=== PATIENT | female | born 1975 | race Caucasian/White ===

== ENCOUNTER 2021-07-13 17:16 | Outpatient (CLI) | payer BC, SELFPAY ==
--- NOTE | ~2021-07-13 | XR_ITS ---
EXAMINATION: XR chest 2V DATE: 07/13/2021 17:32 INDICATION: Cough and shortness of breath TECHNIQUE: Frontal and lateral views of the chest are obtained COMPARISON: None available FINDINGS: The lungs are free of acute opacities. There is no pleural effusion or pneumothorax. The ca rdiomediastinal silhouette is normal. There is mild thoracic spondylosis. IMPRESSION: 1. No acute cardiopulmonary abnormality. Reviewed, dictated and finalized at location B.
== END 2021-07-13 17:17 | disposition home or self-care (01) ==
LOC: ANHIMG 17:20
PROVIDERS: PCP Family Medicine; Visit Provider Nurse Practitioner Gerontology
DX: R05.9 Cough, unspecified (principal); M47.814 Spondylosis without myelopathy or radiculopathy, thoracic region
CPT/HCPCS: 71046

== ENCOUNTER → 2023-03-01 13:53 | Outpatient (CLI) | payer BC, SELFPAY ==
--- NOTE | ~2023-03-01 | US_ITS ---
EXAMINATION: US pelvic complete DATE: 03/01/2023 14:22 INDICATION: Right pelvic mass on CT TECHNIQUE: Multiple transabdominal and endovaginal sonographic images of the pelvis were obtained. COMPARISON: Outside hospital CT dated 02/28/2023 FINDINGS: The uterus is surgically absent. The left ovary is surgically absent. No left adnexal abnor mality is seen. The right ovary measures 7.0 x 4.3 x 5.7 cm. There is an apparent 3 cm solid mass of the right adnexa. There is a 3.5 x 2.1 cm mass with thickened internal septations of the right adnexa . There appears to be a 2.6 x 2.5 cm cystic mass with peripheral solid component of the right adnexa as well. There is normal vascular flow in the right ovary. There is no free fluid in the pelvis. IMPRESSION: 1. Cystic and solid mass versus masses of the right adnexa concerning for neoplasm. Surgical evaluati on is recommended. Reviewed, dictated and finalized at location B. OSURGICAL PHYSICIAN ASSISTANT IMPRESSION: 1. Cystic and solid mass versus masses of the right adnexa concerning for neopl asm. Surgical evaluation is recommended.
== END ==
PROVIDERS: PCP Family Medicine; Visit Provider Physician Assistant
DX: R19.03 Right lower quadrant abdominal swelling, mass and lump (principal)
CPT/HCPCS: 76856

== ENCOUNTER 2023-03-04 12:09 | Outpatient (CLI) | payer BC, SELFPAY ==
[2023-03-08 02:54] LABS: CA-125 12 U/mL (<35)
== END 2023-03-04 12:10 | disposition home or self-care (01) ==
PROVIDERS: PCP Family Medicine; Visit Provider Student in an Organized Health Care Education/Training Program
DX: N83.291 Other ovarian cyst, right side (principal)
CPT/HCPCS: 36415; 86304

== ENCOUNTER 2023-03-07 01:20 | Day surgery (SDC) | payer BC, SELFPAY ==
[2023-03-05 14:23] VITALS: BMI 26.6
--- NOTE | 2023-03-05 14:29 | PC.NURSE ---
Report to the Outpatient Waiting Room, entrance under the green pavilion located off [facility], at time 10:00 on date 03/07/23. Planned Procedure Time: 12:00. Time changes happen often and if your time is changed the preop area will call you the afternoon before. - You and your visitor will be asked to self-screen and do not enter if you have any COVID symptoms. - A mask is optional within the hospital at this time. Patients may have clear liquids (water, carbonated beverages, clear teas, apple juice) until 3 hours prior to surgery (9:00) with a maximum of 20 ounces. - No food from midnight until time of surgery Take the following medications with a SIP of water the morning of surgery: ANTIBIOTIC, PAIN PILL IF NEEDED DO NOT STOP ANY OF YOUR OTHER PRESCRIPTION MEDICATIONS PRIOR TO SURGERY ?EXCEPT THE FOLLOWING Medications to discontinue per physician: N/A Date to take last dose: N/A Please no make-up, nail mongolian, hairspray, perfume, deodorant, or body powder the day of surgery. No jewelry (including any body piercings) or valuables the day of surgery, leave them at home. Please take a shower or bath the night before, or the morning of, surgery with an antibacterial soap. Wear comfortable, loose fitting clothing. - Jewelry must be removed prior to entering the operating room. Rings and piercings that are not removed may be cut off. - The hospital will not accept responsibility for valuables. - Please leave all valuables, including medications, at home the day of surgery. If you are going home after surgery, a licensed short haul driver must drive you home. - NO public transportation without another adult if you receive anesthesia. - We recommend that an adult stay with you for 24 hours following discharge. - We also recommend that you do not drive, make important decision, drink alcoholic beverages, or take any drugs that were not prescribed by your health care provider for at least 24 hours after your discharge time. Follow any additional instructions given to you from your surgeon. If you or anyone in your household have experienced Covid symptoms in the past week, please notify your surgeon or the nurse liaison at the phone number below for possible testing. Telephone instructions given to PT - SUSAN HINTON and asked if any additional questions and then verbalized understanding. Patient advised to call surgeon office or pre surgery nurse liaison [phone] if any additional questions.
[2023-03-07] VITALS (9 sets, daily range): BP systolic 102–139; BP diastolic 61–82; PULSE 68–94; RESP 12–18; TEMP 36.3–36.4; O2SAT 94–100
--- NOTE | 2023-03-07 10:31 | PM.IMHP ---
H&P: HPI History of Present Illness Date/Time: 03/07/23 10:31 Chief Complaint: pelvic pain Ovarian mass Narrative: 47-year-old female who presents for laparoscopic right oophorectomy, possible laparotomy. Patient presented to the emergency room this past weekend after acute onset of pelvic pain. Patient had associated nausea and vomiting. Patient had imaging at [facility] emergency room. CT scan and pelvic ultrasound showed an enlarged 8 x 7 cm right adnexal mass. Mass showed multiple septations, solid components. There is no free fluid in the pelvis. Normal vascular flow was observed. Patient had CA 125 labs ordered. Results are still pending. Patient's pain was poorly controlled with p.o. narcotics. Review of Systems Review of Systems: All systems reviewed & are unremarkable except as noted in HPI and below Cardiovascular: Cardiovascular: Denies chest pain, Denies leg edema, Denies palpitations, Denies dyspnea and Denies dyspnea on exertion Respiratory: Respiratory: Denies cough, Denies dyspnea and Denies dyspnea on exertion Gastrointestinal: Gastrointestinal: Denies abdominal pain, Denies constipation, Denies diarrhea, Denies nausea and Denies vomiting Genitourinary: Genitourinary: Denies hematuria, Denies urinary frequency, Denies dysuria, Denies pelvic pain, Denies urinary incontinence and Denies vaginal discharge Neurologic: Reports system reviewed and no additional complaints, except as documented Psychiatric: Psychiatric: Reports no additional psychiatric complaints Endocrine: Endocrine: Denies palpitations [facility] Surgical History Surgical History (Updated 03/04/23 @ 10:48 by Carol Buckley CMA) H/O: hysterectomy History of cholecystectomy Social History Social History Social History: Single Years smoked: 25 Smoking status: Current every day smoker Tobacco type: cigarettes Second hand tobacco smoke exposure: Yes Alcohol intake: current Alcohol use details: 2/YEAR Substance use: never Substance use type: does not use Lack of Transportation: No Lack of Food: Never True Current Housing: I Have Housing Concerned About Future Housing: No Difficulty Paying Gas/Electric Bills: No Difficulty Paying for Meds: No Currently Unemployed: YES Education: High School Diploma/GED Difficulty w/ Childcare or Family Care: No Living arrangements: with family Occupation/Education: occupation Gender identity (if verbalized by the patient): Female Sexual Orientation (if Verbalized by the Patient): Straight or Heterosexual Spiritual care concerns: No Meds Home Medications and Allergies Home Medications Medication Instructions Recorded Confirmed Type ciprofloxacin HCl 500 mg tablet 500 mg PO Q12H #14 tabs 03/01/23 03/05/23 Rx ondansetron HCl 4 mg tablet 4 mg PO Q8H PRN Nausea And Vomiting 03/04/23 03/05/23 History oxycodone-acetaminophen 10 mg-325 1 tablet PO Q6H PRN pain #28 tabs 03/04/23 03/05/23 Rx mg tablet Allergies Allergy/AdvReac Type Severity Reaction Status Date / Time No Known Allergies Allergy Verified 03/05/23 14:22 Vital Signs Vital Signs - 24 hr 03/07/23 10:15 Temperature 97.4 F L Pulse Rate 80 Respiratory Rate 18 Blood Pressure 114/75 Pulse Oximetry 98 Oxygen Delivery Room Air Exam Const: General: no acute distress Eyes: EOM: EOMs intact bilaterally Neck: Neck: supple Thyroid: thyroid normal Chest: Breast/axilla inspection: normal inspection of the breasts Breast/axilla palpation: normal palpation of the breasts, normal palpation of the axillae and no axillary lymphadenopathy Resp: Effort & Inspection: normal respiratory effort Auscultation: clear to auscultation bilaterally Cardio: Rate: regular rate Rhythm: regular rhythm GI: Inspection: non-distended GI Palp: Yes Soft to palpation, Yes Tenderness to palpation present (GI) and Yes Guarding due to palpation
[2023-03-07] MEDS: LACTATED RINGERS 1,000 ML 30 ML IV CONT ×2 (10:40→13:06)
[2023-03-07] MEDS: ACETAMINOPHEN 500 MG TABLET 1000 MG PO (10:44)
[2023-03-07] MEDS: KETOROLAC 15 MG/ML VIAL (*BKC) IV PUSH (10:45)
[2023-03-07 10:59] LABS: Hematocrit 37.6 % (37.0-47.0); Hemoglobin 12.4 g/dL (12.0-15.0); Mean Corpuscular Hemoglobin 30.8 pg (26-34); Mean Corpuscular Volume 93.5 fl (80-100); Mean Platelet Volume 9.6 fl (7.4-10.4); Platelet Count Result 212 k/mm3 (150-375); Red Blood Count 4.02 M/mm3 (4.2-5.4); Red Cell Distribution Width 12.4 % (11.5-14.5); White Blood Count 5.5 K/mm3 (4.5-10.0)
--- NOTE | 2023-03-07 11:06 | WPDANESEPPF ---
Anes - Initial Pre Proc Eval Procedure: Operation Date: 03/07/23 12:00 Proposed Procedures p Laparoscopic Right Oophorectomy - Moreno Doherty MD Date/Time: 03/07/23 11:06 Surgeon: Moreno Doherty MD Pre Op Diagnosis: right ovarian mass Patient Data Age: 47 Gender: F Height: 1.75 m Weight: 84.1 kg Last Vital Signs Temp 36.3 C L 03/07/23 10:15 Pulse 80 03/07/23 10:15 Resp 18 03/07/23 10:15 BP 114/75 03/07/23 10:15 Pulse Ox 98 03/07/23 10:15 O2 Del Method Room Air 03/07/23 10:15 Allergies Allergy/AdvReac Type Severity Reaction Status Date / Time No Known Allergies Allergy Verified 03/07/23 11:01 Home Medications Medication Instructions Recorded Confirmed Type ciprofloxacin HCl 500 mg tablet 500 mg PO Q12H #14 tabs 03/01/23 03/07/23 Rx ondansetron HCl 4 mg tablet 4 mg PO Q8H PRN Nausea And Vomiting 03/04/23 03/07/23 History oxycodone-acetaminophen 10 mg-325 1 tablet PO Q6H PRN pain #28 tabs 03/04/23 03/07/23 Rx mg tablet Laboratory Tests 03/07/23 10:37 WBC 5.5 K/mm3 (4.5-10.0) RBC 4.02 L M/mm3 (4.2-5.4) Hgb 12.4 g/dL (12.0-15.0) Hct 37.6 % (37.0-47.0) MCV 93.5 fl (80-100) MCH 30.8 pg (26-34) MCHC 33.0 g/dl (32-36) RDW 12.4 % (11.5-14.5) Plt Count 212 k/mm3 (150-375) MPV 9.6 fl (7.4-10.4) Patient hx anesthesia problems: none Family hx anesthesia problems: none Results Review: All pre-operative results and documents have been reviewed as part of the pre-operative evaluation. [facility] Surgical History Surgical History H/O: hysterectomy History of cholecystectomy Social History Social History Social History: Single Years smoked: 25 Smoking status: Current every day smoker Tobacco type: cigarettes Second hand tobacco smoke exposure: Yes Alcohol intake: current Alcohol use details: 2/YEAR Substance use: never Substance use type: does not use Lack of Transportation: No Lack of Food: Never True Current Housing: I Have Housing Concerned About Future Housing: No Difficulty Paying Gas/Electric Bills: No Difficulty Paying for Meds: No Currently Unemployed: YES Education: High School Diploma/GED Difficulty w/ Childcare or Family Care: No Living arrangements: with family Occupation/Education: occupation Gender identity (if verbalized by the patient): Female Sexual Orientation (if Verbalized by the Patient): Straight or Heterosexual Spiritual care concerns: No Anes - Eval Final PreProcedure Day of Procedure 03/07/23 11:06 Patient weight: overweight Heart: regular rate and rhythm Lungs: clear to auscultation Airway: Mallampati scale class II Neurological: alert and oriented Last oral intake: >/= 8 hours ASA classification: II Emergent: no Anesthetic plan: proceed Anesthesia type and monitoring: general ETT and standard monitoring Results Review: All pre-operative results and documents have been reviewed as part of the pre-operative evaluation. Informed Consent: The patient's anesthetic plan and its attendant risks and benefits were discussed with the patient/family/POA. Questions were solicited and answers provided to the satisfaction of the patient/family/POA.
--- NOTE | 2023-03-07 11:32 | WPDHPUPDATE1 ---
History and Physical Update Update Date/Time: 03/07/23 11:32 Plan for laparoscopic right oophorectomy with possible laparotomy History and Physical has been reviewed, including an updated exam of the patient. There are NO changes in the patient's condition. Risks, benefits, and alternatives have been discussed and questions answered. Patient agrees to proceed with procedure.
--- NOTE | 2023-03-07 12:32 | SUR.OPER ---
Cytology specimen was taken to pathology by RADHA Wright and given to Lovely. Reports of transfer were directly verbalized to myself, Seferino Simpson RN.
[2023-03-07] MEDS: LIDO 1%/EPINEPHRINE 1:100,000 50 ML VIAL 15 ML INFILTRATE (12:45)
--- NOTE | 2023-03-07 12:49 | W.PM.PROC2 ---
Procedure Note - Detailed Date of Procedure 03/07/23 Pre-op Diagnosis right ovarian mass Pelvic pain Post-op Diagnosis Same Procedure Performed Laparoscopic right oophorectomy Pelvic washings Surgeon Moreno Doherty MD Anesthesia General Indications Pelvic pain Enlarged right adnexal mass Findings Enlarged and necrotic appearing ovary, torsed around it stalked x1 Bowel omentum adherent to ovarian capsule Left ovary normal in appearance The uterus and fallopian tube surgically absent Description of Procedure The patient was taken to the operating room where general endotracheal anesthesia was undertaken and found to be adequate. She was then prepped and draped in the dorsal lithotomy position and placed in adjustable stirrups. A pre-operative team brief and a time out were completed. A catheter was placed to drain the bladder. A 10 mm skin incision was made in the umbilicus. A 5 mm optical trocar was then placed with direct camera visualization of the abdominal layers during placement. The trocar stylet was removed and the camera was used to verify intra-abdominal placement. CO2 insufflation was then connected and resumed. The pelvis was inspected. A left lower quadrant 5 mm port was placed. Suction irrigation was introduced. The pelvis was copiously irrigated. Pelvic washings were collected and sent to cytology. The right adnexa was noted to have bowel omentum adherent to the right ovary. A bowel omentum was grasped. With blunt graspers and placed on gentle traction. Adhesions were gently peeled away from the right ovarian capsule. After revealing the right ovary, it was noted to be enlarged and necrotic in appearance. A 2nd 5 mm laparoscopic port was placed at the left upper quadrant. The ovarian capsule was friable and ripped with a gentle traction. Old dark coagulated blood was noted within the ovarian capsule. Be ovarian stalk was identified and the ovary was noted to be torsed around it systolic x1 complete rotation. The ovary was de torsed in the opposite direction. After detorsion, the ovarian tissue was noted to be necrotic. The ovary was then ligated and prevent infundibulopelvic ligament with the LigaSure device. The umbilical laparoscopic port was converted to a 10 mm fascial incision to allow for a 12 mm laparoscopic port. Laparoscopic Endo pouch was introduced. The ovarian specimen was placed within the pouch. The specimen and pouch were removed through the umbilicus port site. The surgical field was thoroughly irrigated using normal saline. All surgical beds were noted to be hemostatic. The umbilical incision was closed with 0 Vicryl using a Olayinka-Chey under direct visualization. The abdomen was relieved of all CO2 gas. All remaining trocars were removed from the abdomen. Sponge, lap and needle counts were correct. All skin incisions were closed with 4-0 Vicryl suture subcuticularly. The patient had SCDs on throughout the procedure. The patient was taken out of dorsal lithotomy position. Anesthesia was reversed. The patient was taken to the PACU. Estimated Blood Loss 20 Urine Output 25 Drains No Packing No Pathology Yes (Pelvic washings for cytology, right ovary) Complications No immediate complications Condition Stable Disposition PACU [facility] Billing Surgery - Charge Forward: Surgery Billing
[2023-03-07] MEDS: fentaNYL CITRATE INJ (*CRX) 100 MCG/2 ML VIAL 25 MCG IV PUSH ×8 (13:12→13:31)
[2023-03-07] MEDS: HYDROmorphone HCL INJ (*CRX) 1 MG/ML SYR 0.5 MG IV PUSH ×4 (13:38→14:00)
[2023-03-07] MEDS: oxyCODONE HCL (*CRX) 5 MG TAB IR PO (13:53)
[2023-03-07] MEDS: ONDANSETRON INJ 4 MG/2 ML VIAL IV PUSH (13:55)
== END 2023-03-07 15:09 | disposition home or self-care (01) ==
PROVIDERS: PCP Family Medicine; Visit Provider Student in an Organized Health Care Education/Training Program
PROC: (CPT 49320; principal; 2023-03-07 12:00)
DX: N83.511 Torsion of right ovary and ovarian pedicle (principal); N73.6 Female pelvic peritoneal adhesions (postinfective); Z90.710 Acquired absence of both cervix and uterus; F17.210 Nicotine dependence, cigarettes, uncomplicated
CPT/HCPCS: 58661; 36415; 85027; 86850; 86900; 86901; 88108; 88305; A9270; J1100; J1170; J1885; J2250; J2371; J2405; J2704; J3010; J7030; J7120

== ENCOUNTER → 2023-03-20 16:24 | Outpatient (CLI) | payer BC, SELFPAY ==
--- NOTE | ~2023-03-20 | XR_ITS ---
EXAM: XR shoulder RT min 2V DATE: 03/20/2023 16:53 HISTORY: S49.91XA - Unspecified injury of right shoulder and upper... . COMPARISON: None available. FINDINGS: Normal mineralization. No fracture or dislocation. No lytic or blastic lesion. Joint space s are maintained. No erosion or periosteal change. Soft tissues within normal limits. IMPRESSION: Unremarkable right shoulder radiograph findings. Reviewed, dictated and finalized at location K. ILE BROKER
== END ==
PROVIDERS: PCP Physician Assistant; Visit Provider Physician Assistant
DX: S49.91XA Unspecified injury of right shoulder and upper arm, initial encounter (principal); X58.XXXA Exposure to other specified factors, initial encounter
CPT/HCPCS: 73030

== ENCOUNTER 2023-05-23 16:24 | Outpatient (CLI) | payer BC, SELFPAY ==
--- NOTE | ~2023-05-23 | MR_ITS ---
MRI of the right shoulder Technique: Axial proton-density fat-sat images, coronal proton density fat-sat and T2 fat-sat images, and sagittal T1-weighted and T2 fat-sat images were acquired. Clinical History: Pain Findings: There is minimal AC joint degenerative change. Coracoclavicular, coracoacromial, and coraco humeral ligaments are intact. Supraspinatus and infraspinatus tendons are intact, with mild tendinosis, but no partial or full-thic kness tear. Subscapularis tendon is intact, mild tendinosis. Tendon of long head of the biceps is int act. No definite labral tear identified. There is probable mild degenerative signal superior labrum. Inferior glenohumeral ligament is intact. There is minimal glenohumeral joint effusion without signif icant degenerative change. No fluid distention of the subacromial/subdeltoid bursa. No muscle atrophy or edema. Impression: Mild rotator cuff tendinosis. Probable degenerative superior labral signal without definite tear. Reviewed, dictated and finalized at [facility]. ED OPERATOR Impression: Mild rotator cuff tendinosis. Probable degenerative superior labral signal without definite tear.
== END 2023-05-23 16:25 | disposition home or self-care (01) ==
LOC: ANHIMG 16:25
PROVIDERS: PCP Family Medicine; Visit Provider Family Medicine
DX: M77.8 Other enthesopathies, not elsewhere classified (principal)
CPT/HCPCS: 73221

== ENCOUNTER 2023-11-07 01:23 | Day surgery (SDC) | payer BC, SELFPAY ==
[2023-11-04 16:47] VITALS: BMI 27.9
--- NOTE | 2023-11-04 17:05 | SUR.PREOP ---
Report to the Outpatient Waiting Room, entrance under the green pavilion located off [facility], at time 0830 on date 11/07/2023. Planned Procedure Time: 1030. Time changes happen often and if your time is changed the preop area will call you the afternoon before. - You and your visitor will be asked to self-screen and do not enter if you have any COVID symptoms. - A mask is optional within the hospital at this time. Patients may have clear liquids (water, carbonated beverages, clear teas, apple juice) until 3 hours prior to surgery with a maximum of 20 ounces. - No food from midnight until time of surgery - Infants may have breast milk until 4 hours before surgery, formula 6 hours prior to surgery. - Children will be allowed to drink immediately following surgery. If applicable, please bring a bottle or sippy cup to assist with drinking. Juice, water, soda, and popsicles are readily available. For infants on formula, please bring formula the day of surgery. Pacifiers are allowed. Take the following medications with a SIP of water the morning of surgery: Norco as needed DO NOT STOP ANY OF YOUR OTHER PRESCRIPTION MEDICATIONS PRIOR TO SURGERY ?EXCEPT THE FOLLOWING Medications to discontinue per physician Aleve- last dose 11/01/2023 Date to take last dose Do not take before procedure Please no make-up, nail venezuelan, hairspray, perfume, deodorant, or body powder the day of surgery. No jewelry (including any body piercings) or valuables the day of surgery, leave them at home. Please take a shower or bath the night before, or the morning of, surgery with an antibacterial soap. Wear comfortable, loose fitting clothing. Children are encouraged to wear pajamas. - Jewelry must be removed prior to entering the operating room. Rings and piercings that are not removed may be cut off. - The hospital will not accept responsibility for valuables. - Please leave all valuables, including medications, at home the day of surgery. If you are going home after surgery, a licensed warehouse driver must drive you home. - NO public transportation without another adult if you receive anesthesia. - We recommend that an adult stay with you for 24 hours following discharge. - We also recommend that you do not drive, make important decision, drink alcoholic beverages, or take any drugs that were not prescribed by your health care provider for at least 24 hours after your discharge time. For Pediatric surgeries, we recommend two adults accompany the child home. Follow any additional instructions given to you from your surgeon. If you or anyone in your household have experienced Covid symptoms in the past week, please notify your surgeon or the nurse liaison at the phone number below for possible testing. Telephone instructions given to Richelle and asked if any additional questions and then verbalized understanding. Patient advised to call surgeon office or pre surgery nurse liaison [phone] if any additional questions.
[2023-11-07] VITALS (12 sets, daily range): BP systolic 105–136; BP diastolic 70–97; PULSE 55–80; RESP 10–20; TEMP 36.3; O2SAT 92–100
[2023-11-07] MEDS: LACTATED RINGERS 1,000 ML 30 ML IV CONT ×2 (08:55→12:34)
[2023-11-07] MEDS: ACETAMINOPHEN 500 MG TABLET 1000 MG PO (08:55)
[2023-11-07] MEDS: KETOROLAC 15 MG/ML VIAL (*BKC) IV PUSH (09:00)
--- NOTE | 2023-11-07 09:53 | P.PNAN_ITS ---
Anes - Initial Pre Proc Eval Procedure: Operation Date: 11/07/23 10:30 Proposed Procedures p Right Shoulder Arthroscopic Adhesive Capsular Release with Subacromial Decompression - Neeraj Salvador MD Date/Time: 11/07/23 09:53 Surgeon: Neeraj Salvador MD Pre Op Diagnosis: Adhesive Capsulitis Rt Shoulder Patient Data Age: 48 Gender: F Height: 1.75 m Weight: 87.2 kg Last Vital Signs Temp 97.4 F L 11/07/23 08:40 Pulse 80 11/07/23 08:40 Resp 18 11/07/23 08:40 BP 116/76 11/07/23 08:40 Pulse Ox 98 11/07/23 08:40 O2 Del Method Room Air 11/07/23 08:40 Allergies Allergy/AdvReac Type Severity Reaction Status Date / Time No Known Allergies Allergy Verified 11/07/23 08:46 Home Medications Medication Instructions Recorded Confirmed Type hydrocodone 7.5 mg-acetaminophen 1 tablet PO Q12H PRN pain #30 tabs 10/22/23 11/07/23 Rx 325 mg tablet naproxen sodium 220 mg capsule 220 mg PO PRN PRN Pain 11/04/23 11/07/23 History (Aleve) Patient hx anesthesia problems: none Family hx anesthesia problems: none Results Review: All pre-operative results and documents have been reviewed as part of the pre- operative evaluation. [facility] Surgical History Surgical History H/O: hysterectomy History of cholecystectomy Social History Social History Social History: Single Years smoked: 19 Smoking status: Current every day smoker Tobacco type: cigarettes Second hand tobacco smoke exposure: Yes Alcohol intake: current Alcohol use details: once per month Substance use: never Substance use type: does not use Lack of Transportation: No Lack of Food: Never True Current Housing: I Have Housing Concerned About Future Housing: No Difficulty Paying Gas/Electric Bills: No Difficulty Paying for Meds: No Currently Unemployed: YES Education: High School Diploma/GED Difficulty w/ Childcare or Family Care: No Living arrangements: alone Occupation/Education: occupation Gender identity (if verbalized by the patient): Female Sexual Orientation (if Verbalized by the Patient): Straight or Heterosexual Spiritual care concerns: No Anes - Eval Final PreProcedure Day of Procedure 11/07/23 09:53 Patient weight: overweight Heart: regular rate and rhythm Lungs: clear to auscultation Airway: Mallampati scale and special considerations (Missing several teeth on lower aspect, post. ) Neurological: alert and oriented Last oral intake: >/= 8 hours ASA classification: II Emergent: no Anesthetic plan: proceed Anesthesia type and monitoring: general ETT and standard monitoring Results Review: All pre-operative results and documents have been reviewed as part of the pre- operative evaluation. Pt w active smoking hx, smoked this am prior to arrival. Informed Consent: The patient's anesthetic plan and its attendant risks and benefits were discussed with the patient/family/POA. Questions were solicited and answers provided to the satisfaction of the patient/family/POA.
--- NOTE | 2023-11-07 10:33 | WPDHPUPDATE1 ---
History and Physical Update Update Date/Time: 11/07/23 10:33 History and Physical has been reviewed, including an updated exam of the patient. There are NO changes in the patient's condition. Risks, benefits, and alternatives have been discussed and questions answered. Patient agrees to proceed with procedure.
[2023-11-07] MEDS: ceFAZolin 2 GM/D5W 50 ML 2 GM/50 ML BAG IVPB (10:52)
--- NOTE | 2023-11-07 11:18 | P.OP_ITS ---
Procedure Note - Detailed Date of Procedure 11/07/23 Pre-op Diagnosis 1. Adhesive capsulitis right shoulder 2. Impingement syndrome right shoulder. Post-op Diagnosis Other (Adhesive capsulitis right shoulder.) Procedure Performed Right shoulder arthroscopic capsule release Surgeon Neeraj Salvador MD [employer] Engineer Sravani Means PA-C Anesthesia General Findings Severe capsulitis. The rotator cuff was intact. No significant signs of subacromial impingement. Very good initial release with KIRTI, and further release arthroscopically. Superior labrum with minimal degenerative fraying. Final ROM 150/70/60. Description of Procedure Preoperative antibiotics were given. The patient was brought to the operating room. Careful positioning in the beach chair was accomplished. The head neck were carefully positioned. A small bump was placed under the shoulder. The shoulder was prepped and draped in the usual sterile fashion. Examination under anesthesia performed. Moderate contracture improved. Standard posterior and anterior arthroscopic portals were established. The articular surfaces and rotator cuff were healthy. The capsulitis was severe. The remaining anterior, inferior, and posterior capsule was released with the RF wand. The rotator interval was debrided. Attention was turned to the subacromial space. A partial bursectomy was performed. The subacromial space appeared benign. The arthroscopic instruments were removed. The wounds were closed with interrupted 3-0 Monocryl suture followed by Steri-Strips. A sterile dressing was applied with a sling. The patient was extubated and brought to the recovery room in stable condition. There were no complications. Estimated Blood Loss 10 Drains No Packing No Pathology None sent Complications No immediate complications Condition Stable Disposition PACU [facility] Billing Surgery - Charge Forward: Surgery Billing
[2023-11-07] MEDS: EPINEPHrine HCL INJ 1 MG/ML AMPUL 3 MG IRRIGATION (11:46)
[2023-11-07] MEDS: BUPIVACAINE/EPINEPHRINE 0.5% 10 ML VIAL 20 ML INFILTRATE (11:48)
[2023-11-07] MEDS: fentaNYL CITRATE INJ (*CRX) 100 MCG/2 ML VIAL 25 MCG IV PUSH ×8 (12:49→14:52)
[2023-11-07] MEDS: HYDROmorphone HCL INJ (*CRX) 1 MG/ML SYR 0.25 MG IV PUSH ×4 (13:54→15:10)
[2023-11-07] MEDS: oxyCODONE HCL (*CRX) 5 MG TAB IR PO (14:15)
== END 2023-11-07 15:49 | disposition home or self-care (01) ==
PROVIDERS: PCP Family Medicine; Visit Provider Orthopaedic Surgery
PROC: (CPT 29805; principal; 2023-11-07 10:30)
DX: M75.01 Adhesive capsulitis of right shoulder (principal); M75.41 Impingement syndrome of right shoulder; F17.210 Nicotine dependence, cigarettes, uncomplicated
CPT/HCPCS: 29825; A4565; A9270; J0171; J0690; J1100; J1170; J1885; J2250; J2405; J2704; J3010; J7120

== ENCOUNTER 2024-12-22 09:22 | Outpatient (CLI) | payer BC, SELFPAY ==
--- NOTE | ~2024-12-22 | XR_ITS ---
EXAM/ PROCEDURE: XR shoulder LT min 2V - 12/22/2024 9:27 CDT HISTORY: 49 years old Female with M25.512 - Pain in left shoulder COMPARISON: None available TECHNIQUE: Three view(s) FINDINGS/ IMPRESSION: There are no fractures or dislocations.Joint spaces are within normal limits. Reviewed, dictated and finalized at location N.
== END 2024-12-22 09:23 | disposition home or self-care (01) ==
LOC: MICIMG 09:23
PROVIDERS: PCP Family Medicine; Visit Provider Orthopaedic Surgery
DX: M25.512 Pain in left shoulder (principal)
CPT/HCPCS: 73030

== ENCOUNTER 2025-04-01 08:26 | Outpatient (CLI) | payer BC, SELFPAY ==
--- NOTE | 2025-04-01 08:37 | ECG_ITS ---
Test Date: 2025-04-01 08:43:23 Measurements Intervals [place] Rate: 62 P: -13 OR: 196 QRS: 13 QRSD: 107 T: 35 QT: 402 QTc: 410 Interpretive Statements SINUS RHYTHM INCOMPLETE RIGHT BUNDLE BRANCH BLOCK BASELINE ARTIFACT- I, II, AVR, AVF, V1, V6 BORDERLINE ECG No previous ECG available for comparison Electronically Signed On 04-01-2025 09:09:59 [employer] by Josse Gramajo D.O.
== END 2025-04-01 08:27 | disposition home or self-care (01) ==
PROVIDERS: PCP Family Medicine; Visit Provider Orthopaedic Surgery
DX: Z01.810 Encounter for preprocedural cardiovascular examination (principal); M75.02 Adhesive capsulitis of left shoulder
CPT/HCPCS: 93005